=== PATIENT | male | born 1995 | race Caucasian/White ===

== ENCOUNTER 2018-10-15 19:09 | Emergency (ER) | payer SELFPAY ==
[~2018-10-15] VITALS: Ht 165.1 cm; Wt 85.7 kg
[2018-10-15 19:29] VITALS: Ht 165.1 cm; Wt 85.7 kg
[2018-10-15 22:27] VITALS: BP 150/96
== END 2018-10-15 22:27 | disposition home or self-care (01) ==
LOC: ED 19:09
DX: S61.411A Laceration without foreign body of right hand, initial encounter (principal); S70.02XA Contusion of left hip, initial encounter; W45.8XXA Other foreign body or object entering through skin, initial encounter; Y93.I9 Activity, other involving external motion; Y92.413 State road as the place of occurrence of the external cause; Y99.8 Other external cause status
CPT/HCPCS: 90715; J1885; J2001